=== PATIENT | male | born 1945 | race Caucasian/White ===

== ENCOUNTER 2020-05-09 12:36 | Inpatient (IN) | payer MEDICARE ==
[~2020-05-09] VITALS: Ht 162.6 cm; Wt 88.0 kg
[2020-05-09 17:00] VITALS: BP 150/73
[2020-05-09] MEDS ORDERED: DEXTROSE 50%-WATER 25 GM/50 ML SYRINGE IVP PRN (17:00)
[2020-05-09 18:53] LABS: GLUCOMETER DEV NAME(LOC) 2WR.1C; GLUCOSE,POINT OF CARE 118 MG/DL (70-110)
[2020-05-09] MEDS ORDERED: ACETAMINOPHEN 325 MG TABLET PO PRN (19:00)
[2020-05-09 20:50] VITALS: BP 124/57
[2020-05-09] MEDS: LABETALOL HCL 200 MG TABLET PO SCH (20:58)
[2020-05-09] MEDS: ATORVASTATIN CALCIUM 40 MG TABLET PO SCH ×2 (20:58→21:00)
[2020-05-09] MEDS: SENNA 187 MG TABLET PO SCH (21:00)
[2020-05-09] MEDS: INSULIN GLARGINE,HUM.REC.ANLOG 100 UNITS/ML SQ SCH (21:00)
[2020-05-09] MEDS: INSULIN LISPRO 100 UNITS/ML SQ PRN (21:11)
[2020-05-09 22:15] LABS: GLUCOMETER DEV NAME(LOC) 2WR.1C; GLUCOSE,POINT OF CARE 250 MG/DL (70-110)
[2020-05-09 23:01] VITALS: BP 141/73
[2020-05-10 05:58] LABS: GLUCOMETER DEV NAME(LOC) 2WR.2B; GLUCOSE,POINT OF CARE 208 MG/DL (70-110)
[2020-05-10 06:31] LABS: BASOPHILS % (AUTO) 1.2 % (0.0-2.0); EOSINOPHILS % (AUTO) 3.3 % (1.0-6.0); HEMATOCRIT 40.9 % (41-53); HEMOGLOBIN 14.3 g/dL (13.5-17.5); LYMPHOCYTES # (AUTO) 2.4 K/uL (1.0-4.8); LYMPHOCYTES % (AUTO) 31.8 % (22.0-44.0); MEAN CORPUSCULAR HEMOGLOBIN 29.6 pg (26.0-34.0); MEAN CORPUSCULAR VOLUME 85 fL (80-100); MONOCYTES # (AUTO) 0.7 K/uL (0.1-1.0); MONOCYTES % (AUTO) 8.8 % (2.0-9.0); NEUTROPHILS # (AUTO) 4.2 K/uL (1.8-7.7); NEUTROPHILS % (AUTO) 54.9 % (40.0-70.0); PLATELET COUNT (AUTO) 280 K/uL (150-450); RED BLOOD CELL COUNT(AUTO) 4.83 MIL/uL (4.50-5.90); RED CELL DISTRIBUTION WIDTH 13.6 % (11.5-14.5)
[2020-05-10] MEDS ORDERED: FAMOTIDINE 20 MG TABLET PO SCH (07:00)
[2020-05-10 07:09] LABS: ALBUMIN 3.1 g/dL (3.4-5.0); BILIRUBIN,TOTAL 0.7 mg/dL (0.1-1.0); CALCIUM, TOTAL 8.8 mg/dL (8.8-10.5); CREATININE 1.6 mg/dL (0.60-1.30); POTASSIUM 3.4 mmol/L (3.5-5.1)
[2020-05-10] MEDS: INSULIN LISPRO 100 UNITS/ML SQ SCH ×3 (08:24→17:00)
[2020-05-10] MEDS: INSULIN LISPRO 100 UNITS/ML SQ PRN ×2 (08:25→21:08)
[2020-05-10] MEDS: CLOPIDOGREL BISULFATE 75 MG TABLET PO SCH (08:29)
[2020-05-10] MEDS: MAGNESIUM OXIDE 400 MG TABLET PO SCH (08:29)
[2020-05-10] MEDS: CHOLECALCIFEROL (VIT D3) 1,000 UNITS [25 MCG] TABLET PO SCH (08:29)
[2020-05-10] MEDS: ISOSORBIDE MONONITRATE 30 MG ER TABLET PO SCH (08:29)
[2020-05-10] MEDS: AmLODIPine BESYLATE 10 MG TABLET PO SCH (08:29)
[2020-05-10] MEDS: POTASSIUM CHLORIDE 20 MEQ ER TABLET PO SCH (08:29)
[2020-05-10] MEDS: DOCUSATE SODIUM 250 MG CAPSULE PO SCH (08:29)
[2020-05-10] MEDS: SPIRONOLACTONE 25 MG TABLET PO SCH (08:29)
[2020-05-10] MEDS: LABETALOL HCL 200 MG TABLET PO SCH ×2 (08:30→20:56)
[2020-05-10] MEDS: POLYETHYLENE GLYCOL 3350 17 GM PACKET PO SCH (08:30)
[2020-05-10] MEDS: FINASTERIDE 5 MG TABLET PO SCH (08:30)
[2020-05-10] MEDS: TAMSULOSIN HCL 0.4 MG CAPSULE PO SCH (08:30)
[2020-05-10] MEDS: ASPIRIN 81 MG CHEWABLE TABLET PO SCH (08:30)
[2020-05-10] MEDS ORDERED: ENOXAPARIN SODIUM 40 MG/0.4 ML PF SYRINGE SQ SCH (09:00)
[2020-05-10] MEDS ORDERED: TORSEMIDE 100 MG PO SCH ×2 (09:00→15:00)
[2020-05-10] MEDS ORDERED: TORSEMIDE 20 MG TABLET PO SCH ×2 (09:00→15:00)
[2020-05-10] MEDS ORDERED: POTASSIUM CHLORIDE 20 MEQ ER TABLET PO ONE (11:45)
[2020-05-10 11:52] VITALS: BP 113/55
[2020-05-10 16:16] VITALS: BP 140/76
[2020-05-10] MEDS: TORSEMIDE 100 MG TABLET PO SCH (16:40)
[2020-05-10] MEDS: HEPARIN SODIUM,PORCINE 5,000 UNITS/ML VIAL SQ SCH ×2 (16:40→20:56)
[2020-05-10 17:03] LABS: GLUCOMETER DEV NAME(LOC) 2WR.1C; GLUCOSE,POINT OF CARE 124 MG/DL (70-110)
[2020-05-10 17:03] LABS: GLUCOMETER DEV NAME(LOC) 2WR.1C; GLUCOSE,POINT OF CARE 95 MG/DL (70-110)
[2020-05-10 18:20] LABS: GLUCOMETER DEV NAME(LOC) 2WR.2B; GLUCOSE,POINT OF CARE 92 MG/DL (70-110)
[2020-05-10] MEDS: SENNA 187 MG TABLET PO SCH (20:56)
[2020-05-10] MEDS: ATORVASTATIN CALCIUM 40 MG TABLET PO SCH (20:56)
[2020-05-10 21:06] LABS: GLUCOMETER DEV NAME(LOC) 2WR.2B; GLUCOSE,POINT OF CARE 223 MG/DL (70-110)
[2020-05-10] MEDS: INSULIN GLARGINE,HUM.REC.ANLOG 100 UNITS/ML SQ SCH (21:08)
[2020-05-10 23:45] VITALS: BP 141/77
[2020-05-11 07:29] LABS: GLUCOMETER DEV NAME(LOC) 2WR.1C; GLUCOSE,POINT OF CARE 167 MG/DL (70-110)
[2020-05-11 08:45] VITALS: BP 134/66
[2020-05-11] MEDS: HEPARIN SODIUM,PORCINE 5,000 UNITS/ML VIAL SQ SCH ×3 (08:56→21:11)
[2020-05-11] MEDS: CHOLECALCIFEROL (VIT D3) 1,000 UNITS [25 MCG] TABLET PO SCH (08:56)
[2020-05-11] MEDS: FAMOTIDINE 20 MG TABLET PO SCH (08:57)
[2020-05-11] MEDS: MAGNESIUM OXIDE 400 MG TABLET PO SCH (08:57)
[2020-05-11] MEDS: FINASTERIDE 5 MG TABLET PO SCH (08:57)
[2020-05-11] MEDS: ASPIRIN 81 MG CHEWABLE TABLET PO SCH (08:57)
[2020-05-11] MEDS: CLOPIDOGREL BISULFATE 75 MG TABLET PO SCH (08:57)
[2020-05-11] MEDS: TAMSULOSIN HCL 0.4 MG CAPSULE PO SCH (08:57)
[2020-05-11] MEDS: DOCUSATE SODIUM 250 MG CAPSULE PO SCH (08:57)
[2020-05-11] MEDS: AmLODIPine BESYLATE 10 MG TABLET PO SCH (08:58)
[2020-05-11] MEDS: POLYETHYLENE GLYCOL 3350 17 GM PACKET PO SCH (08:58)
[2020-05-11] MEDS: POTASSIUM CHLORIDE 20 MEQ ER TABLET PO SCH (08:58)
[2020-05-11] MEDS: ISOSORBIDE MONONITRATE 30 MG ER TABLET PO SCH (08:59)
[2020-05-11] MEDS: LABETALOL HCL 200 MG TABLET PO SCH ×2 (08:59→21:10)
[2020-05-11] MEDS: TORSEMIDE 100 MG TABLET PO SCH ×2 (09:00→15:55)
[2020-05-11] MEDS: SPIRONOLACTONE 25 MG TABLET PO SCH (09:00)
[2020-05-11] MEDS: INSULIN LISPRO 100 UNITS/ML SQ SCH ×3 (09:26→17:00)
[2020-05-11] MEDS: INSULIN LISPRO 100 UNITS/ML SQ PRN ×3 (09:27→21:12)
[2020-05-11 13:25] LABS: GLUCOMETER DEV NAME(LOC) 2WR.2B; GLUCOSE,POINT OF CARE 192 MG/DL (70-110)
[2020-05-11 16:00] VITALS: BP 137/78
[2020-05-11 17:46] LABS: GLUCOMETER DEV NAME(LOC) 2WR.1C; GLUCOSE,POINT OF CARE 80 MG/DL (70-110)
[2020-05-11] MEDS ORDERED: MAGNESIUM HYDROXIDE SUSPENSION 30 ML UDCUP PO PRN (18:00)
[2020-05-11 20:50] VITALS: BP 122/55
[2020-05-11] MEDS: SENNA 187 MG TABLET PO SCH (21:10)
[2020-05-11] MEDS: ATORVASTATIN CALCIUM 40 MG TABLET PO SCH (21:10)
[2020-05-11] MEDS: INSULIN GLARGINE,HUM.REC.ANLOG 100 UNITS/ML SQ SCH (21:12)
[2020-05-11 22:13] LABS: GLUCOMETER DEV NAME(LOC) 2WR.2B; GLUCOSE,POINT OF CARE 214 MG/DL (70-110)
[2020-05-12 04:02] VITALS: BP 142/47
[2020-05-12 06:15] LABS: GLUCOMETER DEV NAME(LOC) 2WR.1C; GLUCOSE,POINT OF CARE 179 MG/DL (70-110)
[2020-05-12] MEDS: POLYETHYLENE GLYCOL 3350 17 GM PACKET PO SCH (08:50)
[2020-05-12] MEDS: DOCUSATE SODIUM 250 MG CAPSULE PO SCH (08:50)
[2020-05-12] MEDS: AmLODIPine BESYLATE 10 MG TABLET PO SCH (08:51)
[2020-05-12] MEDS: CHOLECALCIFEROL (VIT D3) 1,000 UNITS [25 MCG] TABLET PO SCH (08:51)
[2020-05-12] MEDS: FAMOTIDINE 20 MG TABLET PO SCH (08:51)
[2020-05-12] MEDS: HEPARIN SODIUM,PORCINE 5,000 UNITS/ML VIAL SQ SCH ×2 (08:51→16:00)
[2020-05-12] MEDS: MAGNESIUM OXIDE 400 MG TABLET PO SCH (08:52)
[2020-05-12] MEDS: TORSEMIDE 100 MG TABLET PO SCH ×2 (08:52→15:00)
[2020-05-12] MEDS: CLOPIDOGREL BISULFATE 75 MG TABLET PO SCH (08:52)
[2020-05-12] MEDS: ASPIRIN 81 MG CHEWABLE TABLET PO SCH (08:53)
[2020-05-12] MEDS: SPIRONOLACTONE 25 MG TABLET PO SCH (08:53)
[2020-05-12] MEDS: LABETALOL HCL 200 MG TABLET PO SCH (08:53)
[2020-05-12] MEDS: TAMSULOSIN HCL 0.4 MG CAPSULE PO SCH (08:53)
[2020-05-12] MEDS: ISOSORBIDE MONONITRATE 30 MG ER TABLET PO SCH (08:53)
[2020-05-12] MEDS: FINASTERIDE 5 MG TABLET PO SCH (08:54)
[2020-05-12] MEDS: POTASSIUM CHLORIDE 20 MEQ ER TABLET PO SCH (08:54)
[2020-05-12] MEDS: INSULIN LISPRO 100 UNITS/ML SQ SCH ×3 (09:16→17:00)
[2020-05-12] MEDS: INSULIN LISPRO 100 UNITS/ML SQ PRN (09:17)
[2020-05-12 09:21] VITALS: BP 141/66
[2020-05-12 15:00] VITALS: BP 144/70
[2020-05-12 15:19] LABS: GLUCOMETER DEV NAME(LOC) 2WR.1C; GLUCOSE,POINT OF CARE 121 MG/DL (70-110)
[2020-05-12 16:31] VITALS: BP 69/51
[2020-05-12] MEDS ORDERED: TAMS-13 PO (16:47)
[2020-05-12] MEDS ORDERED: [UNRECOGNIZED DRUG - CODE] PO (16:47)
[2020-05-12] MEDS ORDERED: CLOP-31 PO (16:47)
[2020-05-12] MEDS ORDERED: ASPI-1111 PO (16:47)
[2020-05-12] MEDS ORDERED: ISOS60TA4 PO (16:47)
[2020-05-12] MEDS ORDERED: FINA-27 PO (16:47)
[2020-05-12] MEDS ORDERED: SPIR25 PO (16:47)
[2020-05-12] MEDS ORDERED: ATOR40TA28 PO (16:47)
[2020-05-12] MEDS ORDERED: AMLO-258 PO (16:47)
[2020-05-12] MEDS ORDERED: INSU100V SQ (16:47)
[2020-05-12] MEDS ORDERED: INSLAN SQ (16:47)
[2020-05-12] MEDS ORDERED: LABE100T8 PO (16:47)
[2020-05-12] MEDS ORDERED: ENOX40DI9 SQ (16:47)
[2020-05-12 22:20] LABS: GLUCOMETER DEV NAME(LOC) 2WR.1C; GLUCOSE,POINT OF CARE 113 MG/DL (70-110)
[2020-05-14] MEDS ORDERED: ASPI-989 PO (12:14)
[2020-05-14] MEDS ORDERED: HEPA500018 SQ (12:14)
[2020-05-14] MEDS ORDERED: AMLO-257 PO (12:14)
[2020-05-14] MEDS ORDERED: DOCU-350 PO (12:14)
[2020-05-14] MEDS ORDERED: INSLAN SQ (12:15)
[2020-05-14] MEDS ORDERED: TORS20TA PO (12:15)
[2020-05-14] MEDS ORDERED: FAMO20 PO (12:19)
== END 2020-05-12 16:27 | disposition home or self-care (01) | DRG 56 ==
LOC: 2WR 16:39
PROVIDERS: ADMIT Physical Medicine & Rehabilitation; ATTEND Physical Medicine & Rehabilitation
DX: I69.354 Hemiplegia and hemiparesis following cerebral infarction affecting left non-dominant side (principal); I63.9 Cerebral infarction, unspecified; I13.0 Hypertensive heart and chronic kidney disease with heart failure and stage 1 through stage 4 chronic kidney disease, or unspecified chronic kidney disease; I48.91 Unspecified atrial fibrillation; Z98.890 Other specified postprocedural states; N18.9 Chronic kidney disease, unspecified; I25.10 Atherosclerotic heart disease of native coronary artery without angina pectoris; Z95.5 Presence of coronary angioplasty implant and graft; N40.0 Benign prostatic hyperplasia without lower urinary tract symptoms; G47.33 Obstructive sleep apnea (adult) (pediatric); E11.22 Type 2 diabetes mellitus with diabetic chronic kidney disease; Z95.0 Presence of cardiac pacemaker; E87.6 Hypokalemia; E78.5 Hyperlipidemia, unspecified; I50.9 Heart failure, unspecified
CPT/HCPCS: 87081; 92507; 92523; 97110; 97112; 97116; 97150; 97163; 97166; 97530; 97535; J1644; J1650; J1815; 36415-L1; 36415-TC; 71046; 71046-TC